=== PATIENT | female | born 1955 | race Hispanic/Latino ===

== ENCOUNTER → 2025-04-25 | Outpatient (REF) | payer MEDICARE ==
[~2025-04-25] MED LIST: ASPIRIN81 MG PO; ATORVASTATIN CA20 MG PO; HUMALOG MI100 UNIT/2 SQ; LOSARTAN POTAS100 MG PO; METFORMIN HCL500 MG PO; ROPIVACAINE/EPI/CLONIDINE/KET 50 ML SYRINGE INJ ONE; TAMOXIFEN PO
[2025-04-25 12:16] LABS: BASOPHILS % 0.4 % (0.0-1.0); EOSINOPHILS % 3.4 % (0.0-6.0); LYMPHOCYTES % 37.4 % (18.0-39.1); MONOCYTES % 6.4 % (4.4-11.3); NEUTROPHILS % 52.1 % (38.7-80.0); RED CELL DISTRIBUTION WIDTH 13.6 % (11.7-14.4)
[2025-04-25 12:47] LABS: EST GLOMERULAR FILTRATION RATE 97.0 ML/MIN (>=60)
== END ==
LOC: RAD 10:09 → EDSTATUS 04-26 07:30
PROVIDERS: ATTEND Specialist
DX: Z01.810 Encounter for preprocedural cardiovascular examination (principal); Z01.812 Encounter for preprocedural laboratory examination; Z01.818 Encounter for other preprocedural examination; M17.12 Unilateral primary osteoarthritis, left knee; Z85.3 Personal history of malignant neoplasm of breast; E11.9 Type 2 diabetes mellitus without complications; I10 Essential (primary) hypertension; Z79.4 Long term (current) use of insulin; Z79.82 Long term (current) use of aspirin
CPT/HCPCS: 36415; 71046; 80048; 85025; 86850; 86900; 93005